=== PATIENT | male | born 1940 | race Native Hawaiian/Other Pacific Islander ===

== ENCOUNTER → 2017-02-28 11:10 | Outpatient (CLI) | payer OTHER | END | disposition home or self-care (01) | LOC: AMB 11:10 | DX: R41.82 Altered mental status, unspecified (principal) ==

== ENCOUNTER 2017-07-14 20:51 | Outpatient (CLI) | payer OTHER | END 2017-07-14 21:29 | disposition short-term general hospital (02) | LOC: AMB 20:51 | DX: M25.511 Pain in right shoulder (principal) | CPT/HCPCS: A0425; A0427 ==